=== PATIENT | male | born 1945 | race Caucasian/White ===

== ENCOUNTER 2021-01-23 09:00 | Outpatient (CLI) | payer MEDICARE, OTHER ==
[2021-01-23 10:07] LABS: ALT (SGPT) 17 U/L (8-55); AST (SGOT) 17 U/L (5-34); Albumin 3.9 g/dL (3.4-4.8); Alkaline Phosphatase 132 U/L (40-110); Anion Gap 14 mmol/L (10-20); BUN (Urea Nitrogen) 22 mg/dL (8.4-25.7); Bilirubin, Total 0.8 mg/dL (0.2-1.2); Calc. Creatinine Clearance 0 mL/min (70-130); Calcium 9.9 mg/dL (7.8-10.44); Carbon Dioxide 29 mmol/L (23-31); Cardiac Risk 2.1 (Less than 4.5); Chloride 106 mmol/L (98-107); Cholesterol 101 mg/dl (< 200 Desired); Globulin 2.5 g/dL (2.4-3.5); Glucose 88 mg/dL (83-110); HDL Cholesterol 47 mg/dL (>60 Neg Risk); LDL Cholesterol, Calculated 43 mg/dL; Potassium 4.5 mmol/L (3.5-5.1); Protein, Total 6.4 g/dL (5.8-8.1); Sodium 144 mmol/L (136-145); Triglycerides 57 mg/dL (Less than 150)
[2021-01-23 17:43] LABS: Hemoglobin A1c 7.5 % (4.0-6.0)
== END 2021-01-23 09:01 | disposition home or self-care (01) ==
LOC: MADLAB 09:00
PROVIDERS: ATTEND Student in an Organized Health Care Education/Training Program
DX: E11.9 Type 2 diabetes mellitus without complications (principal); E78.5 Hyperlipidemia, unspecified
CPT/HCPCS: 36415; 80053; 80061; 83036